=== PATIENT | female | born 1975 | race Caucasian/White ===

== ENCOUNTER 2020-08-17 04:13 | Emergency (ER) | payer MEDICAID ==
[~2020-08-17] VITALS: Ht 165.1 cm; Wt 67.6 kg
--- NOTE | 2020-08-17 04:18 | NUR ---
TO TENT # 2 AMBULATORY
[2020-08-17 04:22] VITALS: BP 111/90
--- NOTE | 2020-08-17 04:30 | NUR ---
SEEN AND EXAMINED BY LAURA WITH ORDERS AND CARRIED OUT
--- NOTE | 2020-08-17 04:40 | NUR ---
SWAB DONE AND SENR TO LAB
[2020-08-17 04:52] VITALS: BP 111/90
== END 2020-08-17 04:52 | disposition home or self-care (01) ==
LOC: MED 04:13
DX: J02.9 Acute pharyngitis, unspecified (principal); E07.9 Disorder of thyroid, unspecified; Z20.828 Contact with and (suspected) exposure to other viral communicable diseases
CPT/HCPCS: 87081; 99283; U0003